=== PATIENT | female | born 1980 | race Caucasian/White ===

== ENCOUNTER 2017-01-26 19:03 | Emergency (ER) | payer MEDICAID ==
[~2017-01-26] VITALS: Ht 167.6 cm; Wt 117.9 kg
[2017-01-26 19:05] VITALS: BP 153/72; PULSE 91; RESP 20; TEMP 98.1; O2SAT 100
--- NOTE | 2017-01-26 19:40 | NUR ---
Placed in room 02 . [address] on [address] monitor, blood pressure machine and pulse oximeter. To gown for exam. Side rails up. Report given to KIKI Garcia.
--- NOTE | 2017-01-26 19:45 | NUR ---
Pt presents to ED with c/o tripped and fell on rock today. pt c/o pain at R legs, ankles, and arms. No bruises noted. skin intact, no active bleeding. A&Ox4, denies SOb or chestpain , denies N/V/D. Will continue to monitor
--- NOTE | 2017-01-26 20:30 | NUR ---
at bedside examining pt
[2017-01-26] MEDS ORDERED: IBUPROFEN 800 MG TABLET PO ONE (21:00)
--- NOTE | 2017-01-26 21:40 | NUR ---
dPatient given written and verbal discharge instructions and verbalizes understanding. ER MD Louis discussed with patient the results and treatment provided. Patient in stable condition. ID arm band removed. Rx of motrin given. Patient educated on pain management and to follow up with PMD. Pain Scale 0/10 Opportunity for questions provided and answered.
[2017-01-26 21:44] VITALS: BP 147/86; PULSE 90; RESP 18; TEMP 98.1; O2SAT 99
== END 2017-01-26 21:40 | disposition home or self-care (01) ==
LOC: SED 19:03
DX: S63.501A Unspecified sprain of right wrist, initial encounter (principal); S93.402A Sprain of unspecified ligament of left ankle, initial encounter; S60.416A Abrasion of right little finger, initial encounter; W01.0XXA Fall on same level from slipping, tripping and stumbling without subsequent striking against object, initial encounter; Y93.02 Activity, running; Y99.8 Other external cause status; Y92.89 Other specified places as the place of occurrence of the external cause
CPT/HCPCS: 99284